=== PATIENT | female | born 1955 ===

== ENCOUNTER 2018-07-31 18:03 | Emergency (ER) | payer MEDICARE, MEDICAID ==
[2018-07-31 18:04] VITALS: BMI 28.1
[2018-07-31 19:41] LABS: BASO % 0.4 % (0.0-2.0); EOS # 0.1 K/uL (0.0-0.7); EOS % 1.4 % (0.0-4.0); HEMOGLOBIN 12.6 g/dL (12.0-16.0); LYMPH # 1.3 K/uL (1.0-4.3); LYMPH % 16.5 % (20.0-40.0); MEAN CELL VOLUME 89.7 fl (81.0-99.0); MEAN CORPUSCULAR HEMOGLOBIN 31.1 pg (27.0-31.0); MEAN CORPUSCULAR HGB CONC 34.6 g/dL (33.0-37.0); MEAN PLATELET VOLUME 8.7 fl (7.2-11.7); MONO # 0.5 K/uL (0.0-0.8); MONO % 6.4 % (0.0-10.0); NEUT # 6.1 K/uL (1.8-7.0); NEUT % 75.3 % (50.0-75.0); NRBC % 0.1 % (0.0-0.0); RBC 4.05 Mil/uL (3.80-5.20); RED CELL DISTRIBUTION WIDTH 13.6 % (11.5-14.5); WHITE BLOOD COUNT 8.1 K/uL (4.8-10.8)
[2018-07-31 19:52] LABS: ALB/GLOB RATIO 1.1 (1.0-2.1); ALBUMIN 4.1 g/dL (3.5-5.0); ALT/SGPT 24 U/L (9-52); AST/SGOT 32 U/L (14-36); BLOOD UREA NITROGEN 14 mg/dl (7-17); CALCIUM 8.8 mg/dL (8.4-10.2); GFR NON-AFRICAN AMERICAN > 60
[2018-07-31 20:03] LABS: B-TYPE NATRIURETIC PEPTIDE 112 pg/ml (0-900)
--- NOTE | 2018-07-31 20:07 | ED PDOC ---
HPI: General Adult Time Seen by Provider: 07/31/18 18:48 Chief Complaint (Nursing): Chest Pain Chief Complaint (Provider): Neck Pain History Per: Patient History/Exam Limitations: no limitations Onset/Duration Of Symptoms: Days (5x days) Current Symptoms Are (Timing): Still Present Severity: Moderate Additional Complaint(s): 63 year old female with no pertinent past medical history presents to the ED for an evaluation of neck pain that started 4x day ago. Patient states that 4x days ago, she started having left sided neck pain which radiates down to her left shoulder, worsening since onset. Patient states that now the pain is to the righ t side of her neck, radiating down to her right shoulder, associated with paresthesias of the right hand. Patient reports also having intermittent pressure of her chest. Patient states that for the past 2x months, she has had a cough for which she was prescribed antibiotics. Patient initially noticed improvement, but the cough returned 4x days ago. Patient states that the chest pressure worsens with her cough. Patient also reports having a headache to the back of her head. Patient states that sometimes she feels lightheaded and has been feeling tired. Otherwise patient denies having fevers, trauma, blurred vision, weakness, and productive phlegm. PMD: Sydnie Garcia MD Past Medical History Reviewed: Historical Data, Nursing Documentation, Vital Signs Vital Signs: Last Vital Signs Temp 98.2 F 07/31/18 18:16 Pulse 79 07/31/18 18:16 Resp 17 07/31/18 18:16 BP 152/90 H 07/31/18 18:16 Pulse Ox 98 07/31/18 18:16 MIRNA Report Viewed: Yes - Medical History PMH: Anxiety, Asthma, Osteoporosis Denies: Chronic Kidney Disease - Surgical History Surgical History: Endoscopy - Family History Family History: States: No Known Family Hx - Social History Current smoker - smoking cessation education provided: No - Immunization History Hx Tetanus Toxoid Vaccination: No Hx Influenza Vaccination: Yes Hx Pneumococcal Vaccination: Yes - Home Medications Home Medications: Ambulatory Orders Medication Instructions Recorded Albuterol HFA [Ventolin HFA 90 1 puff INH PRN PRN 04/07/17 mcg/actuation (8 g)] RX: Fluticasone Nasal [Flonase] 1 puff INH PRN PRN 04/07/17 Cyclobenzaprine [Flexeril] 5 mg PO Q8 PRN #15 tab 07/31/18 Lidocaine 5% [Lidoderm] 1 ea TD DAILY PRN #20 patch 07/31/18 RX: Naproxen [Naprosyn] 1 tab PO BID #30 tab 07/31/18 - Allergies Allergies/Adverse Reactions: Allergies Allergy/AdvReac Type Severity Reaction Status Date / Time No Known Allergies Allergy Verified 12/31/15 07:59 Review of Systems ROS Statement: Except As Marked, All Systems Reviewed And Found Negative Constitutional: Positive for: Other (fatigue). Negative for: Fever Eyes: Negative for: Vision Change Cardiovascular: Positive for: Light Headedness (sometimes), Other (pressure in chest, worsening with cough) Respiratory: Positive for: Cough. Negative for: Sputum Musculoskeletal: Positive for: Neck Pain (left side radiating to left shoulder, right side radiating to right shoulder, paresthesias of right hand.) Neurological: Positive for: Headache (back of head). Negative for: Weakness Physical Exam - Reviewed Nursing Documentation Reviewed: Yes Vital Signs Reviewed: Yes - Physical Exam Appears: Positive for: Non-toxic, No Acute Distress. Negative for: Well (tired appearing) Head Exam: Positive for: ATRAUMATIC, NORMOCEPHALIC Skin: Positive for: Warm, Dry Eye Exam: Positive for: EOMI, PERRL ENT: Negative for: Pharyngeal Erythema, Tonsillar Exudate Neck: Positive for: Painless ROM, Supple Cardiovascular/Chest: Positive for: Regular Rate, Rhythm. Negative for: Murmur Respiratory: Positive for: Normal Breath Sounds. Negative for: Respiratory Distress Gastrointestinal/Abdominal: Positive for: Soft. Negative for: Tenderness Back: Positive for: Other (neck: tenderness of bilateral paraspinal c-spine. Tenderness of bilateral trapezius muscles.). Negative for: Vertebral Tenderness Extremity: Positive for: Normal ROM. Negative for: Deformity Lymphatic: Negative for: Adenopathy Neurologic/Psych: Positive for: Alert, tilting head band sawyer II-XII (intact), Oriented (3x). Negative for: Motor/Sensory Deficits - Laboratory Results Result Diagrams: 07/31/18 19:37 07/31/18 19:37 Lab Results: Total Bilirubin 0.3 mg/dl (0.2-1.3) 07/31/18 19:37 AST 32 U/L (14-36) 07/31/18 19:37 ALT 24 U/L (9-52) 07/31/18 19:37 Alkaline Phosphatase 81 U/L (38-126) 07/31/18 19:37 Total Protein 7.7 G/DL (6.3-8.2) 07/31/18 19:37 Albumin 4.1 g/dL (3.5-5.0) 07/31/18 19:37 Globulin 3.6 gm/dL (2.2-3.9) 07/31/18 19:37 Albumin/Globulin Ratio 1.1 (1.0-2.1) 07/31/18 19:37 - ECG O2 Sat by Pulse Oximetry: 98 (RA) Pulse Ox Interpretation: Normal - Radiology X-Ray: Interpreted by Me, Viewed By Me X-Ray Interpretation: No Acute Disease - CT Scan/US CT cervical spine Other Rad Studies (CT/US): Read By Radiologist, Radiology Report Reviewed (see MDM note) CT head Other Rad Studies (CT/US): Read By Radiologist, Radiology Report Reviewed (see MDM note) Medical Decision Making Medical Decision Makin:48 Initial impression: 63 year old female with neck pain. Differential diagnoses include, but are not limited to radiculopathy, dehydration, and electrolyte abnormality. Initial plan: * CT cervical spine * CT head w/o contrast * XRay chest 2 views * b type natriuretic peptide * CMP * magnesium * phosphorous * TSH * troponin I * CBC with differential * urinalysis * flexeril 10 mg PO * toradol 15 mg IVP * tylenol 325 mg tab 975 mg PO * reevaluation 19:40 CT brain with coronal and sagittal MPRs FINDINGS: BRAIN No acute intraparenchymal hemorrhage. No mass lesion. No CT evidence for acute territorial infarct. No midline shift or extra-axial collections. VENTRICLES: No hydrocephalus. ORBITS: The orbits are unremarkable. SINUSES AND MASTOIDS: The paranasal sinuses and mastoid air cells are clear. BONES: No fracture. SOFT TISSUES: Unremarkable. IMPRESSION: No acute intracranial abnormality. 19:43 CT cervical spine read and reviewed by radiologist FINDINGS: ALIGNMENT: Bony alignment is anatomic. DEGENERATIVE CHANGES: No significant canal stenosis. There is left apophyseal facet arthropathy present at C2-3, C3-4, C4-5, C5-6, C6-7. Left apophyseal hypertrophic facet arthropathy is present at C3-4 and C4-5. There is severe left neural foraminal narrowing evident at C4-5. The remaining exit foramina appear patent bilatera lly. Some bilateral uncovertebral facet arthropathy is present at C5-6 and C6- 7. There is mild degenerative disc disease noted at C5-6 and more advanced degenerative disc disease at C6-7. Marginal osteophytic spurring arises from the C5-C7 vertebrae. Mild degenerative arthritis is noted within the atlanto- dens interval. SOFT TISSUES: The prevertebral soft tissues are within normal limits. LYMPH NODES: Multiple non-enlarged lymph nodes are seen in the left posterior chain. No lymphadenopathy is detected. BONES: No acute fracture or aggressive appearing osseous lesion. IMPRESSION: 1. No acute cervical spine abnormality. 2. Asymmetrical left sided apophyseal facet arthropathy at the C2-C7 levels as described above. The apophyseal facet arthropathy is hypertrophic at C3-4 and C4-5. 3. Marked left exit foramen encroachment at C4-5. 4. Some bilateral uncovertebral facet arthropathy is present at C5-6 and C6-7. 5. Some degenerative disc disease noted at C5-6 and C6-7 as described above. 6. Mild degenerative arthritis within the atlanto-dens interval. 7. Incidental discovery of non-enlarged lymph nodes in the posterior left neck chain. 20:30 XRay chest read and reviewed by me, no acute disease. DW pt findings and plan of care. NSAIDs, muscle relaxants, fu with pmd for possible initiation of physical therapy and further evaluation. Scribe Attestation: Documented by Petra De León, acting as a scribe for Zehra Maher MD. Provider Scribe Attestation: All medical record entries made by the Scribe were at my direction and personally dictated by me. I have reviewed the chart and agree that the record accurately reflects my personal performance of the history, physical exam, medical decision making, and the department course for this patient. I have also personally directed, reviewed, and agree with the discharge instructions and disposition. Disposition - Clinical Impression Clinical Impression: Degenerative disc disease, cervical, Radiculopathy of cervical region - Disposition Referrals: Nico Ceja MD [Medical Doctor] - 08/01/18 Disposition: Routine/Home Disposition Time: 21:00 Condition: STABLE Prescriptions: Cyclobenzaprine [Flexeril] 5 mg PO Q8 PRN #15 tab PRN Reason: muscle spasm Lidocaine 5% [Lidoderm] 1 ea TD DAILY PRN #20 patch PRN Reason: PAIN RX: Naproxen [Naprosyn] 1 tab PO BID #30 tab Instructions: Radiculopathy (DC), Degenerative Disc Disease (DC) Print Language: MAORI
[2018-07-31 20:40] LABS: SQUAMOUS EPITHIAL 1 /hpf (0-5); URINE BILIRUBIN NEGATIVE (NEGATIVE); URINE BLOOD MODERATE (NEGATIVE); URINE CLARITY CLEAR (Clear); URINE COLOR STRAW (YELLOW); URINE GLUCOSE (UA) NEG (NEGATIVE); URINE LEUKOCYTE ESTERASE NEG Leu/uL (Negative); URINE PROTEIN NEGATIVE (NEGATIVE); URINE UROBILINOGEN 0.2-1.0 mg/dL (0.2-1.0)
[2018-07-31 21:06] VITALS: BP 130/82; PULSE 62; RESP 16; TEMP 98.6
[2018-07-31 21:10] VITALS: O2SAT 98
--- NOTE | 2018-08-01 08:42 | CT ---
Date of service: 07/31/2018 PROCEDURE: CT HEAD WITHOUT CONTRAST. HISTORY: numbness intermittent RIGHT arm COMPARISON: None available. TECHNIQUE: Axial computed tomography images were obtained through the head/brain without intravenous contrast. Radiation dose: Total exam DLP = 825.61 mGy-cm. This CT exam was performed using one or more of the following dose reduction techniques: Automated exposure control, adjustment of the mA and/or kV according to patient size, and/or use of iterative reconstruction technique. FINDINGS: HEMORRHAGE: No intracranial hemorrhage. BRAIN: There are mild chronic microangiopathic changes. There is no mass, mass effect or abnormal extra-axial fluid collection. There is no territorial infarction. The midline sagittal structures are normal. VENTRICLES: There is mild age-related global parenchymal volume loss and proportionate enlargement of the ventricles and cortical sulci. CALVARIUM: There is no calvarial fracture or extracranial soft tissue swelling. PARANASAL SINUSES: Predominantly clear. MASTOID AIR CELLS: Predominantly clear. OTHER FINDINGS: None. IMPRESSION: No acute intracranial abnormality. If there is a persistent focal neurologic deficit and an ongoing clinical concern for acute infarction, an MRI of the brain without intravenous contrast would be a more sensitive modality for evaluation of hyperacute/acute ischemic infarction. Mild chronic microangiopathic changes and mild age-related global parenchymal volume loss. A preliminary report was provided by [facility].
--- NOTE | 2018-08-01 09:08 | CT ---
Date of service: 07/31/2018 PROCEDURE: CT Cervical Spine without contrast HISTORY: Neck pain intermittent numbness RIGHT arm COMPARISON: None available. TECHNIQUE: Axial computed tomography images were obtained of the cervical spine without the use of intravenous contrast. Coronal and sagittal reformatted images were created and reviewed. Radiation dose: Total exam DLP = 601.16 mGy-cm. This CT exam was performed using one or more of the following dose reduction techniques: Automated exposure control, adjustment of the mA and/or kV according to patient size, and/or use of iterative reconstruction technique. FINDINGS: VERTEBRAE: There is normal alignment of the cervical vertebral bodies. There is straightening of the cervical spine with loss of normal cervical lordosis. There is no acute fracture or traumatic anterior listhesis. The craniocervical junction is normal. The atlantoaxial joint is normal. DISCS/SPINAL CANAL/NEURAL FORAMINA: There is mild multilevel degenerative disc disease due to combination of disc osteophyte complexes, uncovertebral joint hypertrophy and advanced left-sided multilevel facet arthropathy, worse at C5-6 with moderate bilateral neural foraminal narrowing. No spinal canal stenosis. PARASPINAL SOFT TISSUES: The paraspinous soft tissues are normal. OTHER FINDINGS: No apical pneumothorax. There are asymmetric enlarged left posterior triangle lymph nodes. IMPRESSION: No acute fracture or traumatic anterior listhesis. The evaluation of the discs and spinal cord is limited on noncontrast CT examination. Mild multilevel degenerative disc and advanced left multilevel facet arthropathy, worse at C5-6 with moderate bilateral neural foraminal narrowing. No spinal canal stenosis. An MRI of the cervical spinal on a non emergent basis may be performed for definitive evaluation. Asymmetric enlarged left posterior triangle lymph nodes, nonspecific and may be infectious/inflammatory or neoplastic in etiology for which clinical follow-up is recommended. A preliminary report was provided by [facility].
--- NOTE | 2018-08-01 10:07 | RAD ---
Date of service: 07/31/2018 HISTORY: Cough COMPARISON: 07/27/2017. TECHNIQUE: Chest PA and lateral FINDINGS: LINES AND TUBES: None. LUNG AND PLEURA: The lungs are well inflated and clear. No pleural effusion or pneumothorax. HEART AND MEDIASTINUM: The heart is not enlarged. No aortic atherosclerotic calcifications present. The hilar and mediastinal contours are within normal limits. SKELETAL STRUCTURES: The bony structures are within normal limits for the patient's age. VISUALIZED UPPER ABDOMEN: Normal. OTHER FINDINGS: None. IMPRESSION: No active pulmonary disease.
--- NOTE | 2018-08-01 16:31 | CARD ---
APPROVED REPORT Date of service: 07/31/2018 EKG Measurement Heart [id number] <Conclusion> Normal sinus rhythm Nonspecific T wave abnormality Abnormal ECG
== END 2018-07-31 21:14 | disposition home or self-care (01) ==
LOC: H.ER 18:03
DX: M50.30 Other cervical disc degeneration, unspecified cervical region (principal); M54.12 Radiculopathy, cervical region; M81.0 Age-related osteoporosis without current pathological fracture; J45.909 Unspecified asthma, uncomplicated; R07.89 Other chest pain
CPT/HCPCS: 70450; 71046; 72125; 80053; 81003; 83735; 83880; 84100; 84443; 84484; 85025; 93005; 96374; 99284; J1885